=== PATIENT | male | born 1955 | race Caucasian/White ===

== ENCOUNTER 2017-04-02 16:48 | Emergency (ER) | payer MEDICARE ==
[~2017-04-02] VITALS: Ht 177.8 cm; Wt 95.5 kg
[~2017-04-02 16:48] MED LIST: ALLEGRA ALLERG180 M1 PO; ANTI DEPRESSENT; ATIVAN1 M2 PO; CEPHALEXIN500 M1 PO; CIPRO500 M2 PO; CLONAZEPAM1 M2 PO; FLOMAX0.4 M1 PO; FLONASE ALLERG9.9 ML; HYDROCODON-ACE1 EA16 PO; HYDROCODONE/APA1 CAP PO; KEPPRA PO; KEPPRA500 M1 PO; KLONOPIN2 M1 PO; KLONOPIN2 MG PO; LAMICTAL200 M2 PO; LAMICTAL200 MG PO; LORAZEPAM1 M1 PO; MECLIZINE HCL25 M3 PO; MULTIVITAMINS1 EAC6 PO; NORCO 5-325 TA1 EACH PO; OMEPRAZOLE20 M4 PO; PROZAC40 M1 PO; SERTRALINE HCL50 M4 PO; VIMPAT100 M1 PO; XYZAL5 M1 PO; ZOFRAN4 M2 PO; ZOLOFT50 M1 PO; ZONEGRAN100 M2 PO; ZONEGRAN100 MG PO; ZYRTEC10 MG PO
[2017-04-02 17:44] LABS: BASO % 0.1 % (0-2); EOS % 1.7 % (0-7); EOSINOPHIL ABSOLUTE COUNT 0.1 tho/cmm (0.0-0.7); HCT-HEMATOCRIT 40.7 % (36.0-53.5); HGB-HEMOGLOBIN 13.9 gm/dl (13.5-17.0); IMMATURE GRANULOCYTES ABSOLUTE 0.02 tho/cmm (0-0.03); IMMATURE GRANULOCYTES PERCENT 0.3 % (0-0.3); LYMPH % 17.2 % (20-45); LYMPH ABSOLUTE COUNT 1.2 tho/cmm (0.8-4.5); MCHC MEAN CORPUSCULAR HGB CONC 34.2 % (32.0-36.0); MCV (MEAN CELL VOLUME) 93.8 fl (82.0-96.0); MEAN PLATELET VOLUME 10.5 cmc (9.4-12.4); MONO % 11.1 % (0-12); MONOCYTE ABSOLUTE COUNT 0.8 tho/cmm (0.0-1.2); NEUTROPHIL ABSOLUTE COUNT 4.9 tho/cmm (1.6-8.0); NEUTROPHIL-AUTOMATED 4.9 tho/cmm (1.6-8.0); NEUTROPHILS % 69.6 % (40-80); PLATELET COUNT 211 tho/cmm (150-450); RED BLOOD COUNT 4.34 mil/cmm (4.40-5.70); RED CELL DISTRIBUTION WIDTH 12.8 % (12.4-16.4)
[2017-04-02 17:58] LABS: ALBUMIN 3.6 g/dl (3.5-5.0); ALKALINE PHOSPHATASE 93 U/L (33-138); ALT/SGPT 18 U/L (12-78); ANION GAP 12 mmol/L (0-20); AST/SGOT 10 U/L (10-40); BILIRUBIN,TOTAL 0.4 mg/dl (0.0-1.5); BLOOD UREA NITROGEN 22 mg/dl (6-24); CALCIUM 8.8 mg/dl (8.5-10.5); CARBON DIOXIDE-VENOUS 25 mmol/L (22-32); CHLORIDE 109 mmol/l (96-110); CREATININE 2.01 mg/dl (0.60-1.30); GLUCOSE 96 mg/dL (70-110); LIPASE 212 U/L (73-393); POTASSIUM 4.2 mmol/L (3.7-5.1); SODIUM 142 mmol/L (135-145); eGFR VALUE FOR BLACK 41 mL/Min
[2017-04-02 19:23] LABS: URINE BILIRUBIN NEGATIVE (NEG); URINE BLOOD LARGE (NEG); URINE GLUCOSE (UA) NEGATIVE (NEG); URINE KETONE NEGATIVE (NEG); URINE LEUKOCYTE ESTERASE NEGATIVE (NEG); URINE NITRITE NEGATIVE (NEG); URINE PROTEIN SMALL (NEG)
[2017-04-02 19:25] LABS: URINE APPEARANCE HAZY; URINE COLOR YELLOW
[2017-04-02 19:28] LABS: URINE EPITHELIAL CELLS 0 /[HPF] (0-10); URINE WBC RARE /[HPF] (0-5)
[2017-04-02] MEDS ORDERED: NORCO 5-325 TA1 EACH PO (19:34)
[2017-04-02] MEDS ORDERED: ZOFRAN ODT4 MG PO (19:34)
[2017-04-02] MEDS ORDERED: FLOMAX0.4 M1 PO (19:34)
== END 2017-04-02 19:49 ==
LOC: EDMED → EDBD 16:48 → EDMED 19:49
PROVIDERS: Emergency Medicine
DX: N13.2 Hydronephrosis with renal and ureteral calculous obstruction (principal); G40.909 Epilepsy, unspecified, not intractable, without status epilepticus; F41.9 Anxiety disorder, unspecified; F32.9 Major depressive disorder, single episode, unspecified; Z98.890 Other specified postprocedural states; Z88.0 Allergy status to penicillin
CPT/HCPCS: C9113; J2405